=== PATIENT | female | born 1970 | race Two or more races ===

== ENCOUNTER 2022-05-11 05:10 | Emergency (ER) | payer OTHER ==
[~2022-05-11] VITALS: Ht 165.1 cm; Wt 71.7 kg
[2022-05-11] MEDS ORDERED: ALBU18HF2 INH (06:19)
[2022-05-11] MEDS ORDERED: PRED50TA PO (06:19)
--- NOTE | 2022-05-11 06:29 | NUR ---
RT CALLED FOR BREATHING TX
--- NOTE | 2022-05-11 06:29 | NUR ---
BIBSELF C/O SOB FOR THE PAST WEEK, OUT OF ASTHMA MED NEED REFILL. AUDIBLE WHEEZES BILATERALLY SATTING 93% RA. PLACED ON PULSE OX AND MD WAS AT BEDSIDE FOR EVAL.
[2022-05-11] MEDS ORDERED: IPRATROPIUM NEB FS 0.5 MG/2.5 ML AMPUL.NEB NEB ONE (06:30)
[2022-05-11] MEDS ORDERED: predniSONE 20 MG TABLET PO ONE (06:30)
[2022-05-11] MEDS ORDERED: ALBUTEROL FS 2.5 MG/3 ML VIAL.NEB NEB ONE (06:30)
[2022-05-11] MEDS ORDERED: predniSONE 20 MG TABLET ONE (06:38)
[2022-05-11] MEDS ORDERED: ALBUTEROL FS 2.5 MG/3 ML VIAL.NEB ONE (06:58)
[2022-05-11] MEDS ORDERED: IPRATROPIUM NEB FS 0.5 MG/2.5 ML AMPUL.NEB ONE (06:58)
--- NOTE | 2022-05-11 07:00 | NUR ---
RT AT BEDSIDE FOR BREATHING TX
[2022-05-11 07:08] VITALS: BP 132/66
--- NOTE | 2022-05-11 07:26 | NUR ---
Patient discharged to home in stable condition. Written and verbal after care instructions given. Patient verbalizes understanding of instruction.
== END 2022-05-11 07:27 | disposition home or self-care (01) ==
LOC: ER 05:12
DX: J45.901 Unspecified asthma with (acute) exacerbation (principal); J45.909 Unspecified asthma, uncomplicated; F17.290 Nicotine dependence, other tobacco product, uncomplicated; Z79.51 Long term (current) use of inhaled steroids; Z79.52 Long term (current) use of systemic steroids
CPT/HCPCS: 99283; 94640; J7512

== ENCOUNTER 2022-07-13 02:08 | Emergency (ER) | payer OTHER ==
[~2022-07-13] VITALS: Ht 157.5 cm; Wt 68.0 kg
[~2022-07-13 02:08] MED LIST: ALBU18HF2 INH; PRED50TA PO
--- NOTE | 2022-07-13 02:29 | NUR ---
BIBFRIEND FROM HOME C/O SOB X1 WEEK, RAN OUT OF INHALER. BILATERAL WHEEZING NOTED ON ROOM AIR; SATTING AT 97%. HX ASTHMA. PT A/OX4. SAFETY MEASURES IN PLACE.
[2022-07-13] MEDS ORDERED: ALBUTEROL FS 2.5 MG/0.5 ML VIAL.NEB NEB ONE (02:30)
--- NOTE | 2022-07-13 02:30 | NUR ---
DR. LAUREN CHAPA AT PT'S BEDSIDE
[2022-07-13] MEDS ORDERED: DEXAMETHASONE SOD PHOSPHATE 10 MG/ML VIAL ONE (02:36)
--- NOTE | 2022-07-13 02:46 | NUR ---
Hillary brown in [facility] - 07/13/22 at 0247 by CAROL XRAY DONE AT BEDSIDE
--- NOTE | 2022-07-13 02:46 | NUR ---
SKI LIFT MECHANIC AT PT'S BEDSIDE
[2022-07-13] MEDS ORDERED: ALBUTEROL FS 2.5 MG/0.5 ML VIAL.NEB ONE (02:55)
[2022-07-13] MEDS ORDERED: DEXAMETHASONE SOD PHOSPHATE 4 MG/ML VIAL IM ONE (03:00)
--- NOTE | 2022-07-13 03:01 | NUR ---
RT Called to ER for Neb tx, Tx given with mouth piece, no adverse reaction noted. No respiratory distress noted at this time.
[2022-07-13] MEDS ORDERED: PRED50TA PO (04:44)
[2022-07-13] MEDS ORDERED: ALBU18HF2 INH (04:50)
--- NOTE | 2022-07-13 04:53 | NUR ---
Patient discharged to home in stable condition. Written and verbal after care instructions given. Patient verbalizes understanding of instruction.
[2022-07-13 04:55] VITALS: BP 128/63
== END 2022-07-13 04:55 | disposition home or self-care (01) ==
LOC: ER 02:18
DX: J45.901 Unspecified asthma with (acute) exacerbation (principal); J45.909 Unspecified asthma, uncomplicated; F17.200 Nicotine dependence, unspecified, uncomplicated; Z79.899 Other long term (current) drug therapy
CPT/HCPCS: 99283; 71045; 96372; J1100